=== PATIENT | male | born 1960 | race Caucasian/White ===

== ENCOUNTER 2019-01-21 17:46 | Emergency (ER) | payer OTHER ==
[~2019-01-21] VITALS: Ht 157.5 cm; Wt 84.7 kg
[~2019-01-21 17:46] MED LIST: ACET500C5 PO; AMOX1TAB10 PO; PRED20TA PO
[2019-01-21 17:53] VITALS: BP 141/69; PULSE 84; RESP 17; Ht 157.5 cm; Wt 84.7 kg
== END 2019-01-21 19:16 | disposition home or self-care (01) ==
LOC: E/R 17:46
DX: J02.9 Acute pharyngitis, unspecified (principal)
CPT/HCPCS: 99283